=== PATIENT | female | born 1990 | race Caucasian/White ===

== ENCOUNTER → 2016-11-04 | Outpatient (CLI) | payer OTHER ==
[2016-11-04 16:42] LABS: HEMOGLOBIN 12.4 gm/dl (12.3-15.3); RED BLOOD COUNT 4.05 M/UL (4.00-5.10); WHITE BLOOD COUNT 6.8 K/UL (4.5-11.0)
[2016-11-04 17:00] LABS: BUN/CREATININE RATIO 13 (0-10)
== END ==
LOC: LAB 16:06
PROVIDERS: Nurse Practitioner Acute Care
DX: B19.20 Unspecified viral hepatitis C without hepatic coma (principal)
CPT/HCPCS: 36415; 80053; 84703; 85027

== ENCOUNTER → 2016-12-29 | Outpatient (CLI) | payer OTHER ==
[2016-12-29 18:20] LABS: HEMOGLOBIN 13.5 gm/dl (12.3-15.3); RED BLOOD COUNT 4.2 M/UL (4.00-5.10); WHITE BLOOD COUNT 6.9 K/UL (4.5-11.0)
[2016-12-29 18:39] LABS: BUN/CREATININE RATIO 18 (0-10)
== END ==
LOC: LAB 17:48
PROVIDERS: Nurse Practitioner Acute Care
DX: B19.20 Unspecified viral hepatitis C without hepatic coma (principal)
CPT/HCPCS: 36415; 80053; 84703; 85027

== ENCOUNTER 2021-03-08 18:14 | Emergency (ER) | payer OTHER | END 2021-03-08 19:03 | disposition left against medical advice (07) | LOC: ER1 18:14 | DX: Z53.21 Procedure and treatment not carried out due to patient leaving prior to being seen by health care provider (principal) ==

== ENCOUNTER 2021-04-18 16:55 | Emergency (ER) | payer OTHER ==
[2021-04-18 18:23] LABS: HEMOGLOBIN 14.3 gm/dl (12.3-15.3); RED BLOOD COUNT 3.99 M/UL (4.00-5.10); WHITE BLOOD COUNT 5.9 K/UL (4.5-11.0)
[2021-04-18 18:56] LABS: BUN/CREATININE RATIO 10 (0-10)
== END 2021-04-18 23:18 | disposition home or self-care (01) ==
LOC: ER1 16:55
DX: R10.31 Right lower quadrant pain (principal); R11.2 Nausea with vomiting, unspecified; R06.02 Shortness of breath; Z20.822 Contact with and (suspected) exposure to COVID-19
CPT/HCPCS: 71045; 80053; 81001; 82550; 82553; 83690; 83874; 84484; 84703; 85025; 85379; 85652; 86140; 87086; 94664; 94760; 96374; 99285; J1170; J7030; Q9967; U0002